=== PATIENT | male | born 1970 | race African-American/Black ===

== ENCOUNTER 2017-02-27 15:40 | Emergency (ER) | payer MEDICARE, OTHER ==
[~2017-02-27] VITALS: Ht 170.2 cm; Wt 77.1 kg
[~2017-02-27 15:40] MED LIST: AUGMENTIN875 MG PO; CLARITIN10 M3 PO; GLUCOTROL PO; HYDROCODONE-A1 UDTA4 PO; LISINOPRIL20 MG PO; LORTAB 5-325 M1 EACH PO; METOPROLOL SUCC25 MG PO; MOBIC15 MG PO; PAIN RELIEF650 MG PO; PREDNISONE10 MG PO; RANITIDINE HCL150 M1 PO
== END 2017-02-27 18:50 | disposition left against medical advice (07) ==
LOC: CED 15:40
DX: Z53.21 Procedure and treatment not carried out due to patient leaving prior to being seen by health care provider (principal)